=== PATIENT | female | born 1975 | race Hispanic/Latino ===

== ENCOUNTER 2021-08-05 23:35 | Emergency (ER) | payer OTHER ==
[2021-08-06 00:35] VITALS: BP 121/83
[2021-08-06] MEDS ORDERED: ACETAMINOPHEN 325 MG TAB PO ONE (04:40)
[2021-08-06] MEDS ORDERED: IBUPROFEN 400 MG TAB PO ONE (04:40)
[2021-08-06] MEDS ORDERED: BACITRACIN ZINC OINT 28.4 GM TP STA (04:41)
--- NOTE | 2021-08-06 04:45 | Emergency Department Report ---
ED General Adult HPI - General Chief complaint: Extremity Injury, Lower Stated complaint: SWOLLEN LEGS PUI?: No Time Seen by Provider: 08/06/21 04:39 Source: patient, EMS ( EMS documentation not available at time of chart dictation ), RN notes reviewed Mode of arrival: Stretcher Limitations: No Limitations - History of Present Illness Initial comments: The patient is a 45-year-old female. She is not known to myself previously. The patient reports that she is not . The patient reports that she has been in [place] for the past 2 years, and recently arrived to the [facility]. When arriving in [facility], the patient reports that [facility] counseled her on advised to present to the emergency room for an evaluation. The patient complains of chronic wounds to her bilateral lower extremities, which have been present for years. They were wrapped in [facility] a few months ago. The patient denies headache, neck pain, chest pain, abdominal pain, vomiting, diarrhea, homicidality and suicidality. She reports that she previously served in the , but lost her identification, and passport, and was not able to get back to the [facility] states. She reports that she has a friend/partner who lives over here in [place], who she has found on [employer], but she does not have their phone number. She also reports that if given a turpin card or debit card, she might be able to get in touch with this individual. -: month(s) Location: left, right, lower extremity Severity scale (0 -10): 0 Consistency: constant Improves with: none Worsens with: none - Related Data Previous Rx's Medication Instructions Recorded Last Taken Type Acetaminophen [Non-Aspirin Extra 500 mg PO Q6HR PRN #30 tablet 08/06/21 Unknown Rx Strength] Bacitracin Zinc 30 gm TP BID #1 oint...g. 08/06/21 Unknown Rx Ibuprofen [Motrin] 600 mg PO Q8H PRN #30 tablet 08/06/21 Unknown Rx Permethrin 5% [Acticin 5% CREAM] 1 applicatio TP ONCE 1 Days #2 tube 08/06/21 Unknown Rx Allergies Allergy/AdvReac Type Severity Reaction Status Date / Time No Known Allergies Allergy Verified 08/06/21 05:09 ED Review of Systems ROS: Stated complaint: SWOLLEN LEGS Other details as noted in HPI Constitutional: denies: fever Eyes: denies: eye discharge ENT: denies: epistaxis Respiratory: denies: cough Cardiovascular: denies: chest pain Gastrointestinal: denies: abdominal pain Skin: rash, lesions Psychiatric: denies: homicidal thoughts, suicidal thoughts ED Past Medical Hx - Past Medical History Previous Medical History?: No - Surgical History Past Surgical History?: No - Social History Smoking Status: Unknown if ever smoked Substance Use Type: None - Medications Home Medications: Home Medications Medication Instructions Recorded Confirmed Last Taken Type Acetaminophen [Non-Aspirin Extra 500 mg PO Q6HR PRN #30 tablet 08/06/21 Unknown Rx Strength] Bacitracin Zinc 30 gm TP BID #1 oint...g. 08/06/21 Unknown Rx Ibuprofen [Motrin] 600 mg PO Q8H PRN #30 tablet 08/06/21 Unknown Rx Permethrin 5% [Acticin 5% CREAM] 1 applicatio TP ONCE 1 Days #2 tube 08/06/21 Unknown Rx ED Physical Exam - General Limitations: No Limitations General appearance: alert, in no apparent distress - Head Head exam: Present: atraumatic, normocephalic - Eye Eye exam: Present: normal appearance, EOMI. Absent: nystagmus - ENT ENT exam: Present: normal exam, normal orophraynx, mucous membranes moist, normal external ear exam - Neck Neck exam: Present: normal inspection, full ROM. Absent: tenderness, meningismus - Respiratory Respiratory exam: Present: normal lung sounds bilaterally. Absent: respiratory distress, wheezes, rales, rhonchi, stridor, decreased breath sounds - Cardiovascular Cardiovascular Exam: Present: regular rate, normal rhythm, normal heart sounds. Absent: bradycardia, tachycardia, irregular rhythm, systolic murmur, diastolic murmur, rubs, gallop - GI/Abdominal GI/Abdominal exam: Present: soft. Absent: distended, tenderness, guarding, rebound, rigid, pulsatile mass - Extremities Exam Extremities exam: Present: full ROM, tenderness (There is minimal left lateral lower extremity tenderness and excoriation), pedal edema, other (There is lower extremity swelling, and lymphedema. There is a chronic appearing wound to the left anterior lateral lower extremity. There is a chronic appearing wound to the right posterior lower extremity. There is no pus, streaking, and the muscular compartments are soft.) - Back Exam Back exam: Present: normal inspection. Absent: tenderness, CVA tenderness (R), CVA tenderness (L), muscle spasm, paraspinal tenderness, vertebral tenderness - Neurological Exam Neurological exam: Present: alert, oriented X3, other (No facial droop. Tongue midline. Extraocular movements intact bilaterally. Facial sensation intact to light touch in V1, V2, V3 distribution bilaterally. 5 and a 5 strength in 4 extremities. Sensation intact to light touch in 4 extremities.). Absent: motor sensory deficit - Psychiatric Psychiatric exam: Present: flat affect. Absent: homicidal ideation, suicidal ideation - Skin Skin exam: Present: warm, rash (There is a nontender nonblanching macular rash noted on the right upper extremity.) ED Course Vital Signs 08/06/21 00:31 Temperature 98.8 F Pulse Rate 84 Respiratory 18 Rate Blood Pressure 121/83 [Left] O2 Sat by Pulse 98 Oximetry ED Medical Decision Making - Lab Data Vital Signs 08/06/21 00:31 Temperature 98.8 F Pulse Rate 84 Respiratory 18 Rate Blood Pressure 121/83 [Left] O2 Sat by Pulse 98 Oximetry - Medical Decision Making Differential diagnosis, including but not limited to: Lymphedema, chronic wound, scabies, encounter for medical screening examination Assessment and plan: 45-year-old female, who was afebrile, with reassuring vital signs, who is clinically sober, who exhibits decision-making capacity, and does not meet criteria for 1013 hold or involuntary hold, who reports that she just got back and evaluate states after being in [place] for 2 years, essentially presenting for medical screening examination. Lower extremity wounds do not appear to be superinfected. Local wound care to be applied by nursing team, patient given instructions that she may follow-up with outpatient primary care, and/or the wound clinic. Patient given a list of local homeless shelters. Have also placed patient in for case management consultation/evaluation. Nonspecific rash/macular rash on the upper extremities, does not appear to be superinfected. Uncertain of contact dermatitis versus scabies. Trial of permethrin. Outpatient follow-up. This patient does not appear to have an emergent medical condition present at this time. She exhibits decision-making capacity and is suitable to follow-up as an outpatient. Resources have been provided for her. Critical care attestation.: If time is entered above; I have spent that time in minutes in the direct care of this critically ill patient, excluding procedure time. ED Disposition Clinical Impression: Chronic wound of extremity, Encounter for medical screening examination, Case management patient, Homelessness, Rash Disposition: 01 HOME / SELF CARE / HOMELESS Is pt being admited?: No Does the pt Need Aspirin: No Condition: Good Instructions: Wound Care, Adult, Rash, Adult, [id number], Health Maintenance for Postmenopausal Women Additional Instructions: Patient may take [id number] Benadryl as needed for skin rash and itching. Use the permethrin as directed for right upper extremity rash and truncal rash. Use the bacitracin as directed for lower extremity wounds. Take the pain medications as needed and directed. Wash with gentle soap and water once every 12-24 hours. Follow-up with an outpatient primary care doctor for chronic wounds within the next week to 2 weeks. Follow-up with the listed wound center for outpatient wound care. Patient is also receiving a list of outpatient homeless shelters that she may follow-up with. Please return to the emergency room right away with new pain, worsened pain, migration of pain, projectile vomiting, change in mental status, confusion, inability to tolerate liquid feeds, new, worsened or different symptoms not present on the initial emergency room evaluation. Prescriptions: Permethrin 5% [Acticin 5% CREAM] 1 applicatio TP ONCE 1 Days #2 tube Bacitracin Zinc 30 gm TP BID #1 oint...g. Ibuprofen [Motrin] 600 mg PO Q8H PRN #30 tablet PRN Reason: Pain Acetaminophen [Non-Aspirin Extra Strength] 500 mg PO Q6HR PRN #30 tablet PRN Reason: Pain , Severe (7-10) Referrals: KALA HUTCHINSON MD [Primary Care Provider] - 3-5 Days [facility] [Outside] - 3-5 Days [facility] [Provider Group] - 3-5 Days
== END 2021-08-06 06:20 | disposition home or self-care (01) ==
LOC: ED 23:35
DX: L97.909 Non-pressure chronic ulcer of unspecified part of unspecified lower leg with unspecified severity (principal); Z00.00 Encounter for general adult medical examination without abnormal findings; Z59.00 Homelessness unspecified; R21 Rash and other nonspecific skin eruption
CPT/HCPCS: 99283

== ENCOUNTER 2021-08-06 18:28 | Emergency (ER) | payer OTHER ==
[2021-08-06 18:33] VITALS: BP 118/79
--- NOTE | 2021-08-07 01:22 | Emergency Department Report ---
ED N/V/D HPI - General Chief complaint: Nausea/Vomiting/Diarrhea Stated complaint: N/V/D Time Seen by Provider: 08/07/21 00:49 Source: patient, EMS Mode of arrival: Wheelchair Limitations: No Limitations - History of Present Illness Initial comments: 45-year-old female just returning from [place] presents emerged department complaining pain infected with C. difficile and having issues with nausea vomiting and diarrhea at this present time. She also reports having a pruritic rash to the chest which he states is secondary to a mite infestation which has not yet been treated. - Related Data Previous Rx's Medication Instructions Recorded Last Taken Type Acetaminophen [Non-Aspirin Extra 500 mg PO Q6HR PRN #30 tablet 08/06/21 Unknown Rx Strength] Bacitracin Zinc 30 gm TP BID #1 oint...g. 08/06/21 Unknown Rx Ibuprofen [Motrin] 600 mg PO Q8H PRN #30 tablet 08/06/21 Unknown Rx Chlorhexidine Gluconate [Hibiclens] 10 ml TP BID #240 liquid 08/07/21 Unknown Rx Ciprofloxacin HCl 500 mg PO BID #10 tablet 08/07/21 Unknown Rx Permethrin 5% [Acticin 5% CREAM] 1 applicatio TP ONCE 1 Days #2 tube 08/07/21 Unknown Rx Allergies Allergy/AdvReac Type Severity Reaction Status Date / Time No Known Allergies Allergy Verified 08/06/21 05:09 ED Review of Systems ROS: Stated complaint: N/V/D Other details as noted in HPI Comment: All other systems reviewed and negative ED Past Medical Hx - Social History Smoking Status: Unknown if ever smoked Substance Use Type: None - Medications Home Medications: Home Medications Medication Instructions Recorded Confirmed Last Taken Type Acetaminophen [Non-Aspirin Extra 500 mg PO Q6HR PRN #30 tablet 08/06/21 Unknown Rx Strength] Bacitracin Zinc 30 gm TP BID #1 oint...g. 08/06/21 Unknown Rx Ibuprofen [Motrin] 600 mg PO Q8H PRN #30 tablet 08/06/21 Unknown Rx Chlorhexidine Gluconate [Hibiclens] 10 ml TP BID #240 liquid 08/07/21 Unknown Rx Ciprofloxacin HCl 500 mg PO BID #10 tablet 08/07/21 Unknown Rx Permethrin 5% [Acticin 5% CREAM] 1 applicatio TP ONCE 1 Days #2 tube 08/07/21 Unknown Rx ED Physical Exam - General Limitations: No Limitations General appearance: alert, in no apparent distress - Head Head exam: Present: atraumatic, normocephalic - Eye Eye exam: Present: normal appearance, PERRL, EOMI - ENT ENT exam: Present: mucous membranes moist - Neck Neck exam: Present: normal inspection - Respiratory Respiratory exam: Present: normal lung sounds bilaterally. Absent: respiratory distress - Cardiovascular Cardiovascular Exam: Present: regular rate, normal rhythm. Absent: systolic murmur, diastolic murmur, rubs, gallop - GI/Abdominal GI/Abdominal exam: Present: soft, tenderness (Some tenderness to the upper abdomen area with palpation. No Bridges sign, no tenderness at McBurney's.), normal bowel sounds - Extremities Exam Extremities exam: Present: tenderness, pedal edema (Stasis dermatitis bilaterally left greater than right. Difficult to evaluate the posterior due to the swelling there is weeping and breakage in the skin to the left lower extremity with some open wounds present some local cellulitis noted.) - Back Exam Back exam: Present: normal inspection - Neurological Exam Neurological exam: Present: oriented X3, CN II-XII intact - Psychiatric Psychiatric exam: Present: normal affect, normal mood - Skin Skin exam: Present: warm, dry, normal color, other (Diffuse excoriated papular rash to the folds of the skin chest and some areas on arm and upper back as well suggestive of a mite infestation.). Absent: intact, rash ED Course Vital Signs 08/06/21 18:30 Temperature 98.2 F Pulse Rate 89 Respiratory 18 Rate Blood Pressure 118/79 [Left] O2 Sat by Pulse 100 Oximetry ED Medical Decision Making - Lab Data Result diagrams: 08/07/21 01:24 08/07/21 01:24 - Medical Decision Making This patient presents with abdominal pain of unclear etiology. Lipase is slightly elevated which may be secondary to the department thing/diarrhea episodes were experiencing with requested and difficile infection. Their evaluation has not identified a emergent etiology for the abdominal pain. Specifically, given the very benign exam, normal laboratory studies, and lack of significant risk factors, I have a very low suspicion for appendicitis, ischemic bowel, bowel perforation, or any other life threatening disease. I have discussed with the patient the level of uncertainty with undifferentiated abdominal pain and clearly explained the need to follow-up as noted on the discharge instructions, or return to the Emergency Department immediately if the pain worsens, develops fever, persistent and uncontrollable vomiting, or for any new symptoms or concerns. I discussed with the patient that this presentation today for abdominal pain could represent a significant risk for an acute abdominal process. Although the tests in the ED were essentially normal, there is still a possibility of a process such as appendicitis, diverticulitis, cholecystitis, ulcer, early bowel obstruction, mesenteric ischemia, kidney stone, or even kidney infection which could subsequently cause disability or . The patient understands that they must return within 24 hours for a recheck or see their physician within 24 hours for re-exam due to the possi bility of significant surgical or medical process. Yesterday was seen and evaluated for rash\reported mite infestation since returning from [place] that has not yet been treated. I discussed with the patient the need to take the medication/utilize the permethrin cream to eradicate this infectious process. No hives present Regards to her venous insufficiency/stasis dermatitis will need further e valuation with wound care management and primary care provider to more closely monitor and treat this at this issue. To be honest metabolic for her her C. difficile which she offers some help with the wound with with conjunction of topical ointment and antimicrobial washes Critical care attestation.: If time is entered above; I have spent that time in minutes in the direct care of this critically ill patient, excluding procedure time. ED Disposition Clinical Impression: Diarrhea, Stasis dermatitis, Dermatosis due to mites, Abdominal pain Disposition: HOME / SELF CARE / HOMELESS Is pt being admited?: No Does the pt Need Aspirin: No Condition: Stable Instructions: Diarrhea, Adult, Food Choices to Help Relieve Diarrhea, Adult, Clostridioides Difficile Infection, Stasis Dermatitis, Scabies, Adult Additional Instructions: Be sure to follow-up with the providers listed to help alleviate your stasis dermatitis and your wound [place] ulcers associated with stasis dermatitis. Also take the medication for the rash/mite infestation as directed to eradicate demise. Also we also been evaluated Cipro as you report knowing the actual pathogen for which you have been in contact with causing diarrhea as being C. difficile. Prescriptions: Permethrin 5% [Acticin 5% CREAM] 1 applicatio TP ONCE 1 Days #2 tube Ciprofloxacin HCl 500 mg PO BID #10 tablet Chlorhexidine Gluconate [Hibiclens] 10 ml TP BID #240 liquid Referrals: CEDRIC JHAVERI MD [Staff Physician] - 3-5 Days [facility]Outside] - 3-5 Days
[2021-08-07 02:16] LABS: Hematocrit 33.2 % (30.3-42.9); Hemoglobin 11.1 gm/dl (10.1-14.3); Mean Corpuscular HGB Conc 34 % (30-34); Mean Corpuscular Volume 89 fl (79-97); Platelet Count 702 K/mm3 (140-440); Red Blood Count 3.72 M/mm3 (3.65-5.03); Red Cell Distribution Width 19.5 % (13.2-15.2)
[2021-08-07 02:18] LABS: Alanine Aminotransferase 22 units/L (7-56); Albumin 2.9 g/dL (3.9-5); BUN/Creatinine Ratio 9; Blood Urea Nitrogen 6 mg/dL (7-17); Calcium 9.8 mg/dL (8.4-10.2); Hemolysis Index 2
[2021-08-07 04:25] LABS: Anisocytosis 1+; Total Cells Counted 100
[2021-08-07 04:26] LABS: Platelet Estimate Consistent w Auto
== END 2021-08-07 06:30 | disposition home or self-care (01) ==
LOC: ED 18:28
DX: R19.7 Diarrhea, unspecified (principal); I87.2 Venous insufficiency (chronic) (peripheral); B88.0 Other acariasis; R10.9 Unspecified abdominal pain
CPT/HCPCS: 36415; 80053; 83690; 85007; 85025; 99283